=== PATIENT | female | born 2000 | race Caucasian/White ===

== ENCOUNTER 2019-02-22 19:25 | Emergency (ER) | payer OTHER ==
[~2019-02-22] VITALS: Ht 172.7 cm; Wt 63.6 kg
--- NOTE | 2019-02-22 19:50 | NUR ---
PT BROUGHT BACK TO ROOM AND AMBULATED TO XRAY.
--- NOTE | 2019-02-22 19:58 | NUR ---
PT STATES SHE HAS BEEN SEEING HER PRIMARY PHYSICIAN FOR HTN SINCE NOVEMBER. SEEN PRIMARY PHYSICIAN TODAY AND WAS GIVEN PRESCRIPTION FOR VERAPAMIL TO HELP WITH HTN. PT HAS NOT FILLED OR TAKEN PRESCRIPTION TODAY.
[2019-02-22] MEDS ORDERED: OMNIPAQUE 350 MG/ML, 150 ML BOTTLE ONE (20:00)
[2019-02-22] MEDS ORDERED: ASPIRIN 325 MG TABLET PO STA (20:20)
[2019-02-22] MEDS ORDERED: KETOROLAC 30 MG/1 ML IM ONE (20:30)
[2019-02-22 20:33] LABS: BASOPHILS % (AUTO) 1 % (0-1); EOSINOPHILS # (AUTO) 0.05 x10^3/uL (0-0.8); EOSINOPHILS % (AUTO) 1 % (1-7); LYMPHOCYTES % (AUTO) 30 % (22-44); MD NO; MEAN CORPUSCULAR HGB CONC 32.3 g/dL (32.4-35.8); MEAN CORPUSCULAR VOLUME 83.7 fL (80-100); MEAN PLATELET VOLUME 9.1 fL (7.4-10.4); MONOCYTES # (AUTO) 0.45 x10^3/uL (0-1.4); MONOCYTES % (AUTO) 6 % (2-9); NEUTROPHILS # (AUTO) 4.27 x10^3/uL (1.8-8.0); NEUTROPHILS % (AUTO) 61 % (42-75); PLATELET COUNT 239 x10^3/uL (130-400); RED CELL DISTRIBUTION WIDTH 15.5 % (9.6-15.2)
[2019-02-22] MEDS ORDERED: KETOROLAC 30 MG/1 ML ONE (20:36)
[2019-02-22] MEDS ORDERED: ASPIRIN 81 MG TABLET CHEW ONE (20:36)
[2019-02-22 20:44] LABS: ALANINE AMINOTRANSFERASE 11 U/L (12-78); ALBUMIN 3.8 g/dL (3.4-5.0); ANION GAP 7 mmol/L (5-15); CALCIUM 8.6 mg/dL (8.5-10.1); CHLORIDE 109 mmol/L (98-107); CREATININE 0.91 mg/dL (0.55-1.02)
[2019-02-22 20:49] LABS: ALKALINE PHOSPHATASE 75 U/L (45-117); BILIRUBIN,TOTAL 0.3 mg/dL (0.2-1.0); TOTAL PROTEIN 7.3 g/dL (6.4-8.2); TROPONIN I < 0.015 ng/mL (0.000-0.045)
--- NOTE | 2019-02-22 20:54 | NUR ---
PT GIVEN ASPIRIN PER EMAR. REFUSED TORADOL SHOT AT THIS TIME.
[2019-02-22 22:56] VITALS: BP 149/97
--- NOTE | 2019-02-22 22:56 | NUR ---
Patient/Caregiver given discharge instructions and they have confirmed that they understand the instructions. Patient ambulatory with steady gait.
== END 2019-02-22 22:58 | disposition home or self-care (01) ==
LOC: ED 20:37
DX: R07.89 Other chest pain (principal); I10 Essential (primary) hypertension
CPT/HCPCS: 36415; 71046; 71275; 80053; 84484; 84702; 85025; 85379; 93005; 99284; Q9967